=== PATIENT | female | born 1975 | race Caucasian/White ===

== ENCOUNTER 2017-09-14 04:40 | Emergency (ER) | payer OTHER ==
[2017-09-14 06:16] LABS: Bilirubin Negative (Negative); Blood, Urine Negative (Negative); Glucose, Urine (Dipstick) Negative (Negative); Ketone, Urine Negative (Negative); Nitrite Negative (Negative); Protein, Urine (Dipstick) Negative (Neg-Trace); Urobilinogen 0.2 mg/dL (0.2-1.0)
--- NOTE | 2017-09-14 08:21 | RAD ---
ACUTE ABDOMINAL SERIES: DATE: 09/14/17. PROVIDED CLINICAL HISTORY: Abdominal pain. FINDINGS: Comparison is made with the chest radiograph dated 06/16/11. Cardiac and mediastinal silhouette is u nchanged in appearance. There is no focal consolidation, pleural fluid, or pneumothorax apparent. Supine and upright abdominal radiographs demonstrate a nonspecific bowel gas pattern. Cholecystecto my clips are seen in the right upper quadrant. No radiographically apparent urinary tract calculi. No evidence for pneumoperitoneum. IMPRESSION: 1. No evidence for an acute cardiopulmonary process. 2. Nonspecific bowel gas pattern. POS: OFF
== END 2017-09-14 06:43 | disposition home or self-care (01) ==
LOC: ERS 04:40
DX: R33.9 Retention of urine, unspecified (principal); R10.30 Lower abdominal pain, unspecified; M06.9 Rheumatoid arthritis, unspecified; E78.00 Pure hypercholesterolemia, unspecified; F41.9 Anxiety disorder, unspecified; Z79.899 Other long term (current) drug therapy; Z79.82 Long term (current) use of aspirin
CPT/HCPCS: 51702; 74022; 81003; 81025

== ENCOUNTER 2018-03-23 22:32 | Emergency (ER) | payer OTHER ==
[2018-03-23 22:54] LABS: #Basophils 0.1 thou/uL (0.0-0.2); #Eosinphils 0.4 thou/uL (0.0-0.7); #Lymphocytes 4.8 thou/uL (1.20-3.40); %Eosinophils 2.9 % (0.0-10.0); %Lymphocytes 35.9 % (21.0-51.0); %Monocytes 7.8 % (0.0-10.0); %Neutrophils 52.4 % (42.0-75.0); Hemoglobin 13.3 g/dL (12.0-16.0); Mean Corpuscular HGB CONC 34.3 g/dL (32.0-36.0); Mean Corpuscular Hemoglobin 30.3 pg (27.0-31.0); Mean Corpuscular Volume 88.3 fl (81.0-99.0); Mean Platelet Volume 6.2 fL (7.4-10.4); Platelet Count 596 thou/uL (130-400); RBC Distribution Width 15.8 % (11.5-14.5); Red Blood Cell (RBC) Count 4.39 mill/uL (4.20-5.40); White Blood Cell (WBC) Count 13.4 thou/uL (4.8-10.8)
--- NOTE | 2018-03-23 23:17 | RAD ---
TWO VIEWS CHEST: 03/23/2018 PROVIDED CLINICAL HISTORY: Chest pain. FINDINGS: The cardiac and mediastinal silhouette are within normal limits. The lungs appear clear. There is n o pleural fluid or pneumothorax apparent. IMPRESSION: No evidence for an acute cardiopulmonary process. POS: ALLYSSAH
[2018-03-23 23:19] LABS: CKMB 0.3 ng/mL (0-6.6); Troponin I Less than 0.010 ng/mL (< 0.028)
[2018-03-23 23:20] LABS: ALT (SGPT) 13 U/L (8-55); AST (SGOT) 15 U/L (5-34); Albumin 4.3 g/dL (3.5-5.0); Alkaline Phosphatase 63 U/L (40-150); Anion Gap 14 mmol/L (10-20); BUN (Urea Nitrogen) 15 mg/dL (7.0-18.7); Bilirubin, Total 0.5 mg/dL (0.2-1.2); CK (CPK) 43 U/L (29-168); Calc. Creatinine Clearance 0 mL/min (70-130); Carbon Dioxide 25 mmol/L (22-29); Chloride 103 mmol/L (98-107); Estimated GFR-MDRD 72; Globulin 3.4 g/dL (2.4-3.5); Glucose 107 mg/dL (70-105); Potassium 3.5 mmol/L (3.5-5.1); Protein, Total 7.7 g/dL (6.0-8.3); Sodium 138 mmol/L (136-145)
--- NOTE | 2018-03-24 14:53 | EKG ---
Test Reason : CHEST PAIN Blood Pressure : / mmHG Vent. Rate : 089 BPM Atrial Rate : 089 BPM P-R Int : 136 ms QRS Dur : 084 ms QT Int : 362 ms P-R-T Axes : 042 -11 027 degrees QTc Int : 440 ms Normal sinus rhythm Normal ECG Confirmed by TIMOTHY ARNOLD M.D. ([id number]), assistant film editor HUE ORTIZ ([id number] on 03/24/2018 2:52:36 PM Referred By: Confirmed By:TIMOTHY ARNOLD M.D.
== END 2018-03-24 00:38 | disposition home or self-care (01) ==
LOC: ERS 22:32
DX: R07.89 Other chest pain (principal); M06.9 Rheumatoid arthritis, unspecified; E78.00 Pure hypercholesterolemia, unspecified; F41.9 Anxiety disorder, unspecified; Z79.899 Other long term (current) drug therapy
CPT/HCPCS: 36415; 71046; 80053; 82553; 84484; 85025; 93005

== ENCOUNTER 2018-09-01 15:28 | Outpatient (CLI) | payer OTHER | END 2018-09-01 15:29 | disposition home or self-care (01) | LOC: BICMAMMO 15:28 | PROVIDERS: ATTEND Family Medicine | DX: Z12.31 Encounter for screening mammogram for malignant neoplasm of breast (principal) | CPT/HCPCS: 77063; 77067 ==

== ENCOUNTER 2020-01-12 15:04 | Outpatient (CLI) | payer OTHER ==
--- NOTE | 2020-01-12 15:29 | MMO ---
Bilateral MAMMO Bilat Screen [facility]. CLINICAL HISTORY: Patient is 44 years old and is seen for screening. The patient has no family history of breast cancer. The patient has no personal history of cancer. VIEWS: The views performed were: bilateral craniocaudal with tomosynthesis and bilateral mediolateral oblique with tomosynthesis. FILMS COMPARED: The present examination has been compared to a prior imaging study performed at [facility] on 09/01/2018. This study has been interpreted with the assistance of computer-aided detection. MAMMOGRAM FINDINGS: There are scattered fibroglandular densities. There is an asymmetry seen in the CC view only seen in the inner region of the left breast. In the right breast, there are no suspicious masses, calcifications or areas of architectural distortion. IMPRESSION: ASYMMETRY IN THE LEFT BREAST REQUIRES ADDITIONAL EVALUATION. RECOMMEND DIAGNOSTIC MAMMOGRAM. ULTRASOUND MAY ALSO PROVE USEFUL AT RECALL. THE RESULTS OF THIS EXAM WERE SENT TO THE PATIENT. ACR BI-RADS Category 0 - Incomplete: Need additional imaging evaluation. [facility] will notify the patient of the need for additional imaging services. MAMMOGRAPHY NOTE: 1. A negative mammogram report should not delay a biopsy if a dominant of clinically suspicious mass is present. 2. Approximately 10% to 15% of breast cancers are not detected by mammography. 3. Adenosis and dense breasts may obscure an underlying neoplasm. Reported by: RALF COLMENARES MD Electonically Signed: [id number]
== END 2020-01-12 15:05 | disposition home or self-care (01) ==
LOC: BICMAMMO 15:04
PROVIDERS: ATTEND Physician Assistant
DX: Z12.31 Encounter for screening mammogram for malignant neoplasm of breast (principal); N64.89 Other specified disorders of breast
CPT/HCPCS: 77063; 77067

== ENCOUNTER 2020-01-16 14:30 | Outpatient (CLI) | payer OTHER ==
--- NOTE | 2020-01-16 14:55 | MMO ---
Left Breast MAMMO Unilat Diag [facility]DI LT+[facility]LEY. CLINICAL HISTORY: Patient is 44 years old and is seen for diagnostic exam. The patient has no family history of breast cancer. The patient has no personal history of cancer. VIEWS: The views performed were: left craniocaudal spot compression with tomosynthesis and left mediolateral with tomosynthesis. FILMS COMPARED: The present examination has been compared to prior imaging studies performed at [facility] on 09/01/2018 and 01/12/2020. This study has been interpreted with the assistance of computer-aided detection. MAMMOGRAM FINDINGS: There are scattered fibroglandular densities. There is a focal asymmetry seen in the left breast. Tomosynthesis compression images show the abnormality to represent superimpostion of normal breast parenchyma. There are no suspicious masses, suspicious calcifications, or new areas of architectural distortion. IMPRESSION: THERE IS NO MAMMOGRAPHIC EVIDENCE OF MALIGNANCY. A ROUTINE FOLLOW-UP MAMMOGRAM IN 1 YEAR IS RECOMMENDED. THE RESULTS OF THIS EXAM WERE SENT TO THE PATIENT. ACR BI-RADS Category 2 - Benign finding MAMMOGRAPHY NOTE: 1. A negative mammogram report should not delay a biopsy if a dominant of clinically suspicious mass is present. 2. Approximately 10% to 15% of breast cancers are not detected by mammography. 3. Adenosis and dense breasts may obscure an underlying neoplasm. Reported by: TAYE SAHU MD Electonically Signed: [id number]
== END 2020-01-16 14:31 | disposition home or self-care (01) ==
LOC: BICMAMMO 14:30
PROVIDERS: ATTEND Physician Assistant
DX: R92.2 Inconclusive mammogram (principal)
CPT/HCPCS: G0279

== ENCOUNTER 2020-03-07 14:41 | Outpatient (CLI) | payer OTHER ==
--- NOTE | 2020-03-07 16:31 | MRI ---
MRI CERVICAL SPINE WITHOUT CONTRASTs: 03/07/20 INDICATIONS: Cervicothoracic radiculopathy. Cervical/neck pain. Radiation to shoulders. FINDINGS: The cervical vertebrae maintain normal height and alignment. There is loss of disc space at C4-5. Mil d degenerative spurring from the cervical vertebrae. No significant disc bulge or disc protrusion seen at C2-3 or C3-4. At C4-5, posterior disc bulge and spondylosis impinges on the anterior cord producing slight indentat ion of the anterior cord. These changes are more pronounced paracentrally to the right and there is d isplacement of the traversing right C6 nerve root. There is right foraminal encroachment and possible contact with the exiting right C5 nerve root. At C5-6, mild disc bulge and spondylosis efface the anterior subarachnoid space. No cord impingement. No foraminal stenosis. At C6-7, mild disc bulge and spondylosis flatten the thecal sac. No central canal or foraminal stenos is. At C7-T1, no significant abnormality. Cord signal appears normally maintained. IMPRESSION: Degenerative disc change at C4-5 with posterior disc bulge to the right as described above. This does impinge on a mildly flattened anterior cord on the right. POS: AGW
--- NOTE | 2020-03-07 17:23 | MRI ---
MRI THORACIC SPINE WITHOUT CONTRAST: 03/07/20 INDICATION: Thoracic radiculopathy. FINDINGS: Thoracic vertebrae maintain normal height and alignment. Disc spaces are preserved. Vertebral bodies show normal signal. Disc spaces exhibit normal high T2 signal. No evidence of significant disc bulge or disc protrusion. Minimal bulge at T7-8 mildly flattens the t hecal sac but does not impinge on the cord. The anterior subarachnoid space is preserved. Cord signal appears normal. IMPRESSION: Unremarkable MRI of the thoracic spine. POS: AGW
== END 2020-03-07 14:42 | disposition home or self-care (01) ==
LOC: BICMRI 14:41
PROVIDERS: ATTEND Anesthesiology
DX: M54.14 Radiculopathy, thoracic region (principal); M54.13 Radiculopathy, cervicothoracic region; M47.812 Spondylosis without myelopathy or radiculopathy, cervical region; M50.921 Unspecified cervical disc disorder at C4-C5 level
CPT/HCPCS: 72141; 72146

== ENCOUNTER 2021-07-15 15:02 | Outpatient (CLI) | payer OTHER | END 2021-07-15 15:03 | disposition home or self-care (01) | LOC: BICMRI 15:02 | PROVIDERS: ATTEND Nurse Practitioner Family | DX: M47.27 Other spondylosis with radiculopathy, lumbosacral region (principal); M47.816 Spondylosis without myelopathy or radiculopathy, lumbar region | CPT/HCPCS: 72148 ==

== ENCOUNTER 2024-05-03 14:51 | Outpatient (CLI) | payer BC | END 2024-05-03 14:52 | disposition home or self-care (01) | LOC: BICMAMMO 14:51 | PROVIDERS: ATTEND Family Medicine | DX: Z12.31 Encounter for screening mammogram for malignant neoplasm of breast (principal) | CPT/HCPCS: 77063; 77067 ==

== ENCOUNTER 2024-05-23 16:00 | Outpatient (CLI) | payer BC | END 2024-05-23 16:01 | disposition home or self-care (01) | LOC: SLEEPLAB 16:00 | PROVIDERS: ATTEND Family Medicine | DX: G47.33 Obstructive sleep apnea (adult) (pediatric) (principal); R53.83 Other fatigue; E66.9 Obesity, unspecified; K21.9 Gastro-esophageal reflux disease without esophagitis; M54.50 Low back pain, unspecified; F41.9 Anxiety disorder, unspecified; Z68.35 Body mass index [BMI] 35.0-35.9, adult | CPT/HCPCS: 95800 ==